=== PATIENT | female | born 1985 | race Caucasian/White ===

== ENCOUNTER → 2016-07-25 | Outpatient (CLI) | payer OTHER ==
[2016-07-26 06:09] LABS: PROGESTERONE 004317 13.9 ng/mL (.)
== END | disposition home or self-care (01) ==
LOC: LAB 07:28
PROVIDERS: Obstetrics & Gynecology Reproductive Endocrinology
DX: E28.8 Other ovarian dysfunction (principal)

== ENCOUNTER → 2018-04-30 | Outpatient (CLI) | payer OTHER ==
[2018-05-02 13:05] LABS: ANTI-THROMBIN III ACTIVITY 109 % (75-135); PROTEIN S, FREE 63 % (57-157); PROTEIN S, TOTAL 77 % (60-150); PROTEIN S-FUNCTIONAL 164525 68 % (63-140)
[2018-05-02 14:07] LABS: LUPUS DRVVT 44.5 sec (0.0-47.0); PTT-LA 36.2 sec (0.0-51.9)
[2018-05-03 10:08] LABS: LUPUS REFLEX INTERPRETATION Comment: (.)
[2018-05-03 14:07] LABS: BETA-2 GLYCOPROTEIN I AB,IGA <9 (0-25); BETA-2 GLYCOPROTEIN I AB,IGG <9 (0-20); BETA-2 GLYCOPROTEIN I AB,IGM <9 (0-32)
[2018-05-03 17:07] LABS: ANTICARDIOLIPIN AB, IGG, QN <9 GPL U/mL (0-14); ANTICARDIOLIPIN AB, IGM, QN <9 MPL U/mL (0-12); CARDIOLIPIN AB IGA 161836 <9 APL U/mL (0-11)
== END | disposition home or self-care (01) ==
LOC: LAB 14:05
PROVIDERS: Internal Medicine
DX: O99.112 Other diseases of the blood and blood-forming organs and certain disorders involving the immune mechanism complicating pregnancy, second trimester (principal); Z3A.19 19 weeks gestation of pregnancy